=== PATIENT | male | born 1940 | race Caucasian/White ===

== ENCOUNTER 2025-08-26 13:18 | Outpatient (CLI) | payer BC ==
--- NOTE | 2025-08-26 18:52 | CARDIOLOGY REPORT ---
APPROVED REPORT EXAM: Comprehensive 2D, Doppler, and color-flow Echocardiogram. Patient Location: OUT-PATIENT Heart Rate: 67 bpm Indications Shortness of Breath Atrial Fibrillation Board Operator: Evette Lopez MD Previous ECHO: 08/323, CVC, EF: 60-65; mod LAE; sev (known), UMBERTO: 0.6; GRAD: 67 / 44; PKV: 4.1 2D Dimensions LA Diam 3.8 cm IVSd 1.0 (0.7-1.1cm) LVDd 3.5 cm PWd 1.0 (0.7-1.1cm) IVSs 1.4 (0.8-1.2cm) LVDs 1.8 (2.5-4.0cm) PWs 1.3 (0.8-1.2cm) LVOT Diameter 2.00 (1.8-2.4cm) LVEF(%) 70.0 (>50%) Ao Asc Diam. 3.33 cm IVC 16.39 mm FS (%) 48.6 % SV 42.3 ml CO 3.0 L/min M-Mode Dimensions Left Atrium(MM) 4.37 (2.5-4.0cm) Aortic Root 3.59 (2.2-3.7cm) Aortic Cusp Exc 0.87 (1.5-2.0cm) MV EPSS 1.4 (<0.5cm) Aortic Valve AoV Peak Vini. 431.7 cm/s AoV VTI 101.9 cm AO Peak GR. 74.5 mmHg AO Mean GR. 41 mmHg LVOT VTI 16.54 cm LVOT Peak Vini. 82.8 cm/s UMBERTO(VTI)/BSA 0.63 cm2/m2 UMBERTO (VTI) 0.63 cm2 AV DI 0.20 % Mitral Valve MV E Velocity 96.2 cm/s MV Peak Gr. 5 mmHg MV DECEL TIME 252 ms MV A Velocity 36.0 cm/s MV PHT 84 ms E/A Ratio 2.7 MVA (PHT) 2.62 cm2 MV VMax 110.6 cm/s TDI Lateral E' P. V 5.57 cm/s E/Lateral E' 17.3 Tricuspid Valve TR P. Velocity 318 cm/s RAP ESTIMATE 10 mmHg TR Peak Gr. 41 mmHg RVSP 51 mmHg LEFT VENTRICLE Normal LV size and wall thickness. Overall systolic function is normal. LVEF is 70-75%. RIGHT VENTRICLE Right ventricle is mildly dilated with adequate function. Elevated right heart pressures with an RVSP of 51 mmHG. ATRIA Left atrium is mildly dilated. 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 UMBERTO is measured at 0.63 cmsq. Peak / mean gradients of 75 / 41 mmHG. Peak velocity is measured at 4.32 m/sec. No insufficiency. MITRAL VALVE Moderate mitral annular calcification without stenosis. Trace regurgitation. TRICUSPID VALVE Tricuspid valve is grossly normal in structure with mild regurgitation. PULMONIC VALVE Pulmonic valve is not well visualized. GREAT VESSELS The aortic root is normal in size. The ascending aorta is normal in size. The IVC is normal in size and collapses >50% with inspiration. PERICARDIUM Normal pericardium. No effusion. Other Information Study Quality: Fair due to body habitus Conclusion Normal LV size and wall thickness. Overall systolic function is normal. LVEF is 70-75%. Right ventricle is mildly dilated with adequate function. Elevated right heart pressures with an RVSP of 51 mmHG. Left atrium is mildly dilated. 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 UMBERTO is measured at 0.63 cmsq. Peak / mean gradients of 75 / 41 mmHG. Peak velocity is measured at 4.32 m/sec. No insufficiency. Moderate mitral annular calcification without stenosis. Trace regurgitation. Tricuspid valve is grossly normal in structure with mild regurgitation. Normal pericardium. No effusion.
== END 2025-08-26 23:59 | disposition home or self-care (01) ==
LOC: CARD DIAG 13:18
PROVIDERS: ATTEND Internal Medicine Interventional Cardiology
DX: I08.3 Combined rheumatic disorders of mitral, aortic and tricuspid valves (principal); I48.92 Unspecified atrial flutter; R06.02 Shortness of breath; I48.91 Unspecified atrial fibrillation
CPT/HCPCS: 93306